=== PATIENT | female | born 2005 | race Caucasian/White ===

== ENCOUNTER 2025-06-01 06:09 | Emergency (ER) | payer OTHER ==
[~2025-06-01] VITALS: Ht 165.1 cm; Wt 68.1 kg
[2025-06-01] MEDS ORDERED: CETI-24 PO (07:05)
[2025-06-01] MEDS ORDERED: PRED20TA PO (07:05)
[2025-06-01 07:30] VITALS: BP 113/70; TEMP 98.5; O2SAT 99
== END 2025-06-01 07:31 | disposition home or self-care (01) ==
LOC: M ED 06:09
DX: H01.01 Ulcerative blepharitis (principal)